=== PATIENT | female | born 1930 | race Caucasian/White ===

== ENCOUNTER → 2016-10-17 | Outpatient (CLI) | payer MEDICARE, OTHER | END | disposition home or self-care (01) | LOC: RESP 09:49 | PROVIDERS: ATTEND Orthopaedic Surgery | DX: Z01.818 Encounter for other preprocedural examination (principal) ==

== ENCOUNTER 2016-11-08 07:50 | Day surgery (SDC) | payer MEDICARE, OTHER ==
[~2016-11-08 07:50] MED LIST: BUPIVACAINE 0.25% INJ 30 ML VIAL INJ ONE; LACTATED RINGERS 1,000 ML ONE; LIDOCAINE 1% 50 ML VIAL INJ ONE; PROPOFOL 200 MG/20 ML VIAL IV ONE; SODIUM CHL 0.9% 100ML MINI-BAG 100 ML IVPB ONE; VANCOMYCIN HCL INJ 1,000 MG VIAL IVPB ONE; ceFAZolin SODIUM 1 GM VIAL ONE
[2016-11-08 13:26] VITALS: BP 158/85; TEMP 97.2; O2SAT 97
--- NOTE | 2016-11-13 09:40 | OP ---
DATE OF PROCEDURE: 11/08/16 PREOPERATIVE DIAGNOSIS: 1. Carpal tunnel syndrome. POSTOPERATIVE DIAGNOSIS: 1. Carpal tunnel syndrome. PROCEDURE: 1. Carpal tunnel release. SURGEON: Carmelo Bazan MD. DIRECTOR OF EVENTS: Saleem Reeves CST, SA-C. ANESTHESIA: Local with sedation. COMPLICATIONS: None. FINDINGS: Narrowing of the median nerve across the carpal tunnel and some thenar atrophy. INDICATION: The patient has a history of symptoms consistent with carpal tunnel syndrome. She has attempted conservative measures, however, has failed to gain relief. Because of her ongoing symptoms and inability to gain relief, she has requested operative intervention. After discussing the risks, benefits and alternatives to that, the patient has given informed consent for carpal tunnel release. PROCEDURE: The patient was brought to the Operating Room and placed in the supine position. Sedation was administered and local anesthetic was injected into the operative area under sterile conditions. After the injection of anesthetic, the arm was sterilely prepped and draped. A longitudinal incision was made directly overlying the transverse carpal ligament and blunt dissection was carried down to the ligament. The transverse carpal ligament was sharply transected along its length and a Wheelwright elevator was used to ensure complete release of the ligament. Once release had been confirmed, the wound was thoroughly irrigated and the wound was closed with Nylon suture. A sterile dressing was placed and the patient was taken to the Day Surgery Unit. POSTOPERATIVE INSTRUCTIONS: The patient has been encouraged to do range of motion of the digits and will followup with us in two days. #[id number] MTDD
== END 2016-11-08 11:20 | disposition home or self-care (01) ==
LOC: AMB 07:50
PROVIDERS: ATTEND Orthopaedic Surgery
DX: G56.02 Carpal tunnel syndrome, left upper limb (principal); I10 Essential (primary) hypertension; I25.10 Atherosclerotic heart disease of native coronary artery without angina pectoris; K21.9 Gastro-esophageal reflux disease without esophagitis; E04.1 Nontoxic single thyroid nodule; E66.9 Obesity, unspecified; Z88.8 Allergy status to other drugs, medicaments and biological substances; Z79.899 Other long term (current) drug therapy
CPT/HCPCS: 01810; 64721; J0690; J3370; J3490; J7050; J7120

== ENCOUNTER → 2017-10-02 | Outpatient (CLI) | payer MEDICARE, OTHER | LOC: GMAH 10:39 | PROVIDERS: ATTEND Family Medicine | DX: E78.2 Mixed hyperlipidemia (principal); F41.0 Panic disorder [episodic paroxysmal anxiety] ==

== ENCOUNTER → 2017-11-19 | Outpatient (CLI) | payer MEDICARE, OTHER | LOC: LAB.O 11:07 | PROVIDERS: ATTEND Internal Medicine Gastroenterology | DX: R19.7 Diarrhea, unspecified (principal); I25.10 Atherosclerotic heart disease of native coronary artery without angina pectoris ==

== ENCOUNTER → 2018-01-07 | Outpatient (CLI) | payer MEDICARE, OTHER | LOC: GMAH 14:18 | PROVIDERS: ATTEND Family Medicine | DX: E03.9 Hypothyroidism, unspecified (principal); M10.9 Gout, unspecified ==

== ENCOUNTER 2018-01-14 05:38 | Day surgery (SDC) | payer MEDICARE, OTHER ==
[2018-01-14] MEDS ORDERED: LACTATED RINGERS 1,000 ML ONE ×2 (05:57→09:49)
[2018-01-14] MEDS ORDERED: LIDOCAINE 1% 10 ML VIAL INJ ONE (07:00)
[2018-01-14] MEDS ORDERED: PROPOFOL 200 MG/20 ML VIAL IV ONE (07:00)
--- NOTE | 2018-01-14 10:51 | OP ---
DATE OF PROCEDURE: 01/14/18 PREPROCEDURE DIAGNOSIS: 1. Diarrhea. 2. Change in bowel pattern. POSTPROCEDURE DIAGNOSIS: 1. Large hiatal hernia. 2. Colonic polyp in ascending colon. 3. Colonic mass in the rectum. 4. Large colonic polyp in distal rectum. PROCEDURE: 1. Esophagogastroduodenoscopy. 2. Colonoscopy. SURGEON: Kyle Mendoza MD COMPLICATIONS: No immediate complications. SEDATION: The patient was sedated via IV propofol by the Anesthesia Department. CONSENT: Prior to the procedure, risks, benefits and alternatives to the therapy were discussed with the patient. The risks included bleeding, infection , perforation and . The patient agreed to the procedure and signed a consent. PREPROCEDURE ANESTHESIA ASSESSMENT: An examination revealed no contraindication to sedation. Airway examination demonstrated a Mallampati class type 2, ASA grade assessment type 2. Throughout the procedure, the patient's blood pressure and other vitals were closely monitored. EGD: The patient was placed in the left lateral decubitus position. Bite block was placed in the mouth between the teeth. The Olympus endoscope was introduced through the oropharynx, esophagus and stomach. The scope was advanced to the duodenum. The scope was retracted and the mucosa visualized. The entirety of the exam was performed under direct visualization. Retroflexion was performed in the stomach. FINDINGS: 1. A large hiatal hernia was found in the distal esophagus. This measured approximately 5 cm. 2. Normal stomach. 3. Normal duodenum. Random duodenal biopsies were obtained to rule out celiac disease. COLONOSCOPY: The patient was turned around and rectal examination was performed. The rectal examination was within normal limits. The Olympus colonoscope was passed in the anus, rectum, traversing the colon to the level of the cecum as identified by the appendiceal orifice and the ileocecal valve. The scope was retracted and the mucosa was visualized. The entirety of the exam was performed with direct visualization. Preparation quality was fair. The withdrawal time was greater than 6 minutes. The patient tolerated the procedure well. FINDINGS: 1. A 15 mm sessile polyp was found in the ascending colon. This was removed with cold snare. No bleeding after resection. The polyp was completely retrieved. 2. A large colonic mass measuring approximately 50 mm in the proximal rectum was visualized. The mass appeared to be fungating with small areas of ulceration and flat lateral spreading on the vazquez of the colon. The mass was not obstructive. Biopsies were obtained with cold forceps. Carbon spot was utilized for tattoo immediately proximal to the mass. 3. A 30 mm semi-sessile polyp was found in the distal rectum. No biopsies and no resection was performed due to fair bowel preparation and also recent diagnosis of colonic mass further up into the rectum. 4. Non-bleeding medium sized internal hemorrhoids. 5. Random biopsies with cold forceps were obtained from the colonic mucosa ( ascending and descending colon) to rule out Microscopic Colitis. RECOMMENDATIONS: 1. Return the patient home. 2. Resume previous diet. 3. Followup pathology results. 4. Return to my office in the following 1 to 2 weeks. 5. Additional recommendations including possible surgical partial colectomy ( LAR) after reviewing pathology results and discussing case with surgeon. Patient will need EMR of distal rectal lesion prior. 6. Resume previous medications. #[id number] [facility]
[2018-01-14 11:17] VITALS: BP 166/84; TEMP 97.8; O2SAT 96
== END 2018-01-14 11:10 | disposition home or self-care (01) ==
LOC: AMB 05:38
PROVIDERS: ATTEND Internal Medicine Gastroenterology
DX: R63.4 Abnormal weight loss (principal); K52.9 Noninfective gastroenteritis and colitis, unspecified; D12.2 Benign neoplasm of ascending colon; D12.4 Benign neoplasm of descending colon; K62.1 Rectal polyp; K64.8 Other hemorrhoids; K44.9 Diaphragmatic hernia without obstruction or gangrene; F41.9 Anxiety disorder, unspecified; I13.10 Hypertensive heart and chronic kidney disease without heart failure, with stage 1 through stage 4 chronic kidney disease, or unspecified chronic kidney disease; N18.9 Chronic kidney disease, unspecified; I51.7 Cardiomegaly; E66.9 Obesity, unspecified; I25.10 Atherosclerotic heart disease of native coronary artery without angina pectoris; Z88.5 Allergy status to narcotic agent; Z79.899 Other long term (current) drug therapy; Z68.35 Body mass index [BMI] 35.0-35.9, adult
CPT/HCPCS: 00813; 43239; 45380; 45381; 45385; 88304; J3490; J7120

== ENCOUNTER → 2018-10-07 | Outpatient (CLI) | payer MEDICARE, OTHER | LOC: GMAH 10:45 | PROVIDERS: ATTEND Family Medicine | DX: E78.2 Mixed hyperlipidemia (principal); I10 Essential (primary) hypertension ==

== ENCOUNTER → 2019-10-28 | Outpatient (CLI) | payer MEDICARE, OTHER | LOC: GMA MATASK 10:15 | PROVIDERS: ATTEND Family Medicine | DX: E03.9 Hypothyroidism, unspecified (principal); E78.2 Mixed hyperlipidemia ==

== ENCOUNTER → 2020-03-06 | Outpatient (CLI) | payer MEDICARE, OTHER | LOC: GMA MATASK 10:36 | PROVIDERS: ATTEND Family Medicine | DX: E03.9 Hypothyroidism, unspecified (principal); I10 Essential (primary) hypertension ==